=== PATIENT | female | born 1960 | race Two or more races ===

== ENCOUNTER 2022-04-23 07:45 | Inpatient (IN) | payer OTHER ==
[~2022-04-23] VITALS: Ht 152.4 cm; Wt 56.7 kg
[~2022-04-23 07:45] MED LIST: CEFTIN250 MG/5 M PO; PEPCID40 MG PO; ZOFRAN8 MG PO
[2022-04-23] MEDS ORDERED: TENORMIN25 MG PO (08:38)
[2022-04-27] MEDS ORDERED: ROSUVASTATIN CAL5 MG (09:38)
[2022-04-27] MEDS ORDERED: ACETAMINOPHEN-1 EAC2 PO (11:40)
[2022-04-27] MEDS ORDERED: CELEBREX200MG PO (11:41)
[2022-04-27] MEDS ORDERED: COLACE100 MG PO (11:41)
[2022-04-27] MEDS ORDERED: PEPCID20 MG PO (11:42)
== END 2022-04-27 13:19 | disposition home or self-care (01) | DRG 743 ==
LOC: O/R 04-26 05:39 → OB/GYN 04-26 05:39 → SURG 04-26 07:00 → OB/GYN 04-26 13:08
PROVIDERS: ADMIT Obstetrics & Gynecology; ATTEND Obstetrics & Gynecology
PROC: 0UT78ZZ Resection of Bilateral Fallopian Tubes, Via Natural or Artificial Opening Endoscopic (ICD-10-PCS; 2022-04-26)
PROC: 0UT28ZZ Resection of Bilateral Ovaries, Via Natural or Artificial Opening Endoscopic (ICD-10-PCS; 2022-04-26)
PROC: 0USG4ZZ Reposition Vagina, Percutaneous Endoscopic Approach (ICD-10-PCS; 2022-04-26)
PROC: 0UT98ZZ Resection of Uterus, Via Natural or Artificial Opening Endoscopic (ICD-10-PCS; principal; 2022-04-26 07:00)
DX: D25.1 Intramural leiomyoma of uterus (principal); N72 Inflammatory disease of cervix uteri; N80.03 Adenomyosis of the uterus; N83.291 Other ovarian cyst, right side; N83.292 Other ovarian cyst, left side; Z20.822 Contact with and (suspected) exposure to COVID-19

== ENCOUNTER 2024-05-21 10:40 | Outpatient (CLI) | payer OTHER ==
[~2024-05-21 10:40] MED LIST changes: +ACETAMINOPHEN-1 EAC2 PO; +CELEBREX200MG PO; +COLACE100 MG PO; +PEPCID20 MG PO; +ROSUVASTATIN CAL5 MG; +TENORMIN25 MG PO
== END 2024-05-21 10:50 | disposition home or self-care (01) ==
LOC: MAMO-SONO 10:40
PROVIDERS: ATTEND Obstetrics & Gynecology
DX: D28.0 Benign neoplasm of vulva (principal); N60.11 Diffuse cystic mastopathy of right breast; N60.12 Diffuse cystic mastopathy of left breast; Z12.31 Encounter for screening mammogram for malignant neoplasm of breast

== ENCOUNTER 2024-06-02 10:43 | Outpatient (CLI) | payer OTHER | END 2024-06-02 10:45 | disposition home or self-care (01) | LOC: NUCLEAR 10:43 | PROVIDERS: ATTEND Obstetrics & Gynecology | DX: M81.0 Age-related osteoporosis without current pathological fracture (principal) ==